=== PATIENT | female | born 1950 | race Caucasian/White ===

== ENCOUNTER 2022-09-29 18:18 | Inpatient (IN) | payer MEDICAID, OTHER ==
[~2022-09-29] VITALS: Ht 177.8 cm; Wt 70.0 kg
[2022-09-29] MEDS ORDERED: MORPHINE SULFATE 4 MG/ML CPJ (NOT FOR IM USE) IV STA (18:31)
[2022-09-29] MEDS ORDERED: ACETAMINOPHEN 650MG SUPP PR ONE (18:45)
[2022-09-29] MEDS ORDERED: SODIUM CHLORIDE 0.9% 1,000 ML IV ONE (18:45)
[2022-09-29] MEDS ORDERED: METOPROLOL TARTRATE 5MG/5ML VIAL IV ONE ×2 (19:00→19:45)
[2022-09-29 19:12] LABS: HEMATOCRIT. 35.5 % (36.0-48.0); HEMOGLOBIN. 11.8 g/dL (12.0-16.0); MEAN CORPUSCULAR HEMOGLOBIN 37.6 pg (28.0-32.0); MEAN CORPUSCULAR VOLUME 112.4 fL (81.0-99.0); RED BLOOD CELL COUNT 3.15 mill/uL (4.2-5.4)
[2022-09-29 19:15] VITALS: BP 126/56
[2022-09-29] MEDS: VANCOMYCIN 1G PREMIX 200 ML IV SCH ×2 (19:16→19:17)
[2022-09-29] MEDS: PIPERACILLIN/TAZOBACTAM 3.375GM/50ML PREMIX IV NR ×2 (19:16→19:17)
[2022-09-29 19:19] LABS: CHLORIDE 102 mEq/L (98-107)
[2022-09-29] MEDS ORDERED: DEXTROSE 50% WATER 50ML SYRINGE IV ONE ×2 (19:41→19:45)
[2022-09-29] MEDS ORDERED: DEXT 10% WATER 500 ML IV SCH (19:45)
[2022-09-29 19:55] LABS: PLATELET ESTIMATE MARKEDLY DECREASED
[2022-09-29 19:59] LABS: MEAN PLATELET VOLUME 9.5 fl (7.4-10.4)
[2022-09-29] MEDS ORDERED: SODIUM CHLORIDE 0.9% 500 ML IV ONE (20:30)
[2022-09-29] MEDS ORDERED: PHENYLEPHRINE 50 MG in DEXT 5% WATER 245 ML IV SCH ×2 (20:45→21:00)
[2022-09-29] MEDS ORDERED: CALCIUM GLUCONATE 100MG/ML 10ML VIAL IV NR (22:15)
[2022-09-29] MEDS ORDERED: NOREPINEPHRINE 8MG/250ML PMX 250 ML IV ONE (22:15)
== END 2022-09-30 00:36 | DRG 720 ==
LOC: ER 18:18 → MICUSO 23:13 → EDBEDREQTM 23:34 → EDBEDREQSVC 23:34 → EDBEDREQ 23:34 → ENRESERV 23:44
PROVIDERS: ADMIT Internal Medicine; ATTEND Internal Medicine
DX: A41.9 Sepsis, unspecified organism (principal); K72.10 Chronic hepatic failure without coma; Z66 Do not resuscitate
CPT/HCPCS: 36415; 71045; 80053; 82962; 83605; 84145; 85025; 99285; J0610; J2270; J2370; J2543; J3370; J3490; J7030; J7060